=== PATIENT | female | born 1990 | race Caucasian/White ===

== ENCOUNTER 2018-09-20 18:33 | Emergency (ER) | payer SELFPAY ==
[~2018-09-20] VITALS: Ht 165.1 cm; Wt 56.8 kg
[2018-09-20] MEDS ORDERED: PERTUSS(ACELL),DIPH,TET VAC/PF 0.5 ML VIAL IM ONE (21:45)
[2018-09-20] MEDS ORDERED: CEPHALEXIN MONOHYDRATE 500 MG CAPSULE PO ONE (21:45)
[2018-09-20] MEDS ORDERED: IBUPROFEN 600 MG TABLET PO ONE (21:45)
[2018-09-20] MEDS ORDERED: HYDROGEN PEROXIDE 118 ML SOLUTION TP ONE (21:45)
[2018-09-20 22:26] VITALS: BP 121/70
== END 2018-09-20 22:43 | disposition home or self-care (01) ==
LOC: EMS 18:34
DX: S91.332A Puncture wound without foreign body, left foot, initial encounter (principal); W45.8XXA Other foreign body or object entering through skin, initial encounter; Y93.01 Activity, walking, marching and hiking; Y92.89 Other specified places as the place of occurrence of the external cause; Y99.8 Other external cause status
CPT/HCPCS: 90471; 90715